=== PATIENT | female | born 1975 | race Caucasian/White ===

== ENCOUNTER → 2018-08-04 13:47 | Outpatient (CLI) | payer MEDICARE, SELFPAY | PROVIDERS: PCP Family Medicine; Visit Provider Family Medicine | DX: G47.30 Sleep apnea, unspecified (principal); R40.0 Somnolence | CPT/HCPCS: G0399 ==

== ENCOUNTER → 2018-10-24 19:40 | Outpatient (CLI) | payer MEDICARE, SELFPAY | PROVIDERS: PCP Family Medicine; Visit Provider Specialist | DX: G47.33 Obstructive sleep apnea (adult) (pediatric) (principal) | CPT/HCPCS: 95811 ==

== ENCOUNTER → 2019-01-15 12:55 | Outpatient (CLI) | payer MEDICARE, SELFPAY | PROVIDERS: PCP Family Medicine; Visit Provider Nurse Practitioner Family | DX: G47.33 Obstructive sleep apnea (adult) (pediatric) (principal) | CPT/HCPCS: 94762 ==

== ENCOUNTER → 2019-02-14 15:48 | Outpatient (CLI) | payer MEDICARE, SELFPAY ==
[2019-02-14 16:56] LABS: Basophils % 0.3 % (0.1-2.0); Eosinophils # 0.1 K/mm3 (0.0-0.4); Eosinophils % 1.1 % (0.1-12.0); Hematocrit 47.6 % (37.0-47.0); Hemoglobin 15.7 g/dL (12.2-16.2); Lymphocytes # 2.3 K/mm3 (0.7-4.5); Lymphocytes % 32.3 % (10-50); Mean Corpuscular HGB Conc 32.9 g/dL (31.8-35.4); Mean Corpuscular Volume 88.2 fl (81-99); Mean Platelet Volume 8.4 fl (7.4-10.4); Monocytes # 0.3 K/mm3 (0.1-1.0); Monocytes % 4.7 % (1.7-9.3); Neutrophils # 4.3 K/mm3 (1.8-7.8); Neutrophils % 61.4 % (37.0-80.0); Platelet Count 242 K/mm3 (142-424); Red Cell Distribution Width 14.2 % (11.5-17.5)
[2019-02-14 17:18] LABS: Alanine Aminotransferase 21 U/L (12-78); Albumin Level 3.8 gm/dL (3.4-5.0); Albumin/Globulin Ratio 1.2 (1.1-1.8); Alkaline Phosphatase 97 U/L (46-116); Anion Gap 13.3 mEq/L (5-15); Aspartate Amino Transferase 12 U/L (15-37); Bilirubin,Total 0.3 mg/dL (0.2-1.0); Blood Urea Nitrogen 16 mg/dL (7-18); Calcium 9.2 mg/dL (8.5-10.1); Carbon Dioxide 29 mmol/L (21.0-32.0); Chloride 98 mmol/L (98-107); Creatinine,Serum 0.96 mg/dL (0.55-1.02); Estimated Glomerular Filt Rate 63 ml/min (>60); GFR (African American) 76 ML/MIN (>60); Globulin 3.2 gm/dl (1.3-3.2); Glucose 218 mg/dL (74-106); Potassium 4.3 mmoL/L (3.5-5.1); Sodium 136 mmol/L (136-145); Thyroid Stimulating Hormone 1.16 uIU/ml (0.358-3.740)
[2019-02-16 10:10] LABS: Vitamin B12 609 pg/mL (232-1245); Vitamin D 25 Hydroxy 13.2 ng/mL (30.0-100.0)
== END ==
PROVIDERS: Visit Provider Nurse Practitioner Family
DX: E10.9 Type 1 diabetes mellitus without complications (principal); E55.9 Vitamin D deficiency, unspecified; G47.00 Insomnia, unspecified; G47.19 Other hypersomnia; G47.33 Obstructive sleep apnea (adult) (pediatric); R53.83 Other fatigue
CPT/HCPCS: 36415; 80053; 82607; 82652; 82746; 84443; 85025

== ENCOUNTER → 2020-04-07 09:57 | Outpatient (CLI) | payer MEDICARE, SELFPAY ==
[2020-04-07 11:44] LABS: Coronavirus 19 IgG Antibody Negative (Negative); Coronavirus 19 IgM Antibody Negative (Negative)
== END ==
PROVIDERS: Visit Provider Surgery
DX: Z01.818 Encounter for other preprocedural examination (principal); Z12.11 Encounter for screening for malignant neoplasm of colon
CPT/HCPCS: 36415; 86328

== ENCOUNTER 2020-04-08 06:20 | Day surgery (SDC) | payer MEDICARE, SELFPAY ==
[2020-04-04 13:09] VITALS: BMI 28.5
[2020-04-08 07:05] VITALS: BP 124/67; PULSE 79; RESP 20; TEMP 36.8; O2SAT 96
--- NOTE | 2020-04-08 07:12 | P.PN_ITS ---
[facility] Anesthesia Checklist - Patient Identification Patient Identification: Arm Band, Verbal (Name & ) - Structural Data Admitted From: Home Planned Operative Procedure/s: colon Consent for Planned Operative Procedure(s) Verified: Yes Verified Documents: History and Physical - NPO Status Verified Time NPO: 00:00 - Chart Verification Results Verified: CBC, BMP - Additional verifications Patient : No Anesthesia Reactions: No Hx Blood Transfusions: No Blood Transfusion Reaction: No Cephalosporin Allergy: No Previous Colonoscopy: No - Cardiovascular Assessment Heart Sounds: S1 & S2 Pulse Strength: Baseline Pulse Rhythm: Regular Peripheral Edema: No - Airway Assessment C-Spine Mobility Assessed: Yes TMJ Mobility Assessed: Yes Dentition: Edentulous - Neurological Assessment Level of Consciousness: Awake, Alert, Appropriate Hx Seizures: No Numbness or tingling in extremities: No - Anesthesia Plan Anesthesia Risk discussed: Yes Anesthesia Plan: Verified ASA Class: III Anesthesia Type: MAC [facility] History I have reviewed the patient's past medical history: Yes Medical History: Reports:: Anxiety, Depression, Diabetes Mellitus Type 1, Hyperlipidemia, Migraine Denies:: Cancer, Diabetes Mellitus Type 2, Internal Pacemaker, MRSA *Have you ever received a pneumonia vaccine?: No *Have you received a flu vaccine this season?: Yes Anesthesia experience/problems:: none Laterality Cases: Right: Arthroscopy Knee, Bilateral: Carpal Tunnel Release Other Surgeries: Yes: Colonoscopy, EGD, Hysterectomy-Partial, Tubal Ligation. No: Pacemaker Amputation: No Fractures: No - *Social History Last grade of school completed: Advanced degree Smoking Status: Current every day smoker Tobacco Type: cigarettes # Packs/Day (cigarettes): 1 Alcohol Intake: never Alcohol Intake Frequency:: other Substance Use Type: denies use *Occupational Status:: employed Housing: house Household Members: spouse *Travel in the last 8 weeks: None - Psychiatric History Pschychiatric History:: Reports:: Anxiety, Depression Family Hx:: Coronary Artery Disease, Hypertension, Stroke
[2020-04-08 07:19] LABS: POC Glucose,Bedside 292 (70-110)
[2020-04-08 07:26] VITALS: O2SAT 96
[2020-04-08 08:24] VITALS: BP 122/78; PULSE 82; RESP 20; TEMP 36.3; O2SAT 98
--- NOTE | 2020-04-08 08:24 | HMH.SCOPE ---
- Procedure: Date: 04/08/20 Patient Date of :: 1975 Procedure Performed:: Colonoscopy with polypectomy by biopsy and snare, colon biopsy Indications:: Patient presents for follow-up colonoscopy. I had performed EGD and colonoscopy on 12/21/2016. That was her initial colonoscopy. She had a couple of tubular adenomas in the cecum. Plan was for follow-up colonoscopy in 3 years. Of note, the patient underwent cervical spinal fusion on 02/12/2020. He is essentially asymptomatic regarding gastrointestinal symptoms. Performing Provider:: Vincenzo Whitfield MD Referring Provider:: None Sedation:: Propofol Procedure:: Patient was taken to endoscopy procedure room. She was positioned in a lateral cubitus position. Adequate intravenous sedation was achieved. Variable stiffness Olympus colonoscope was inserted via the anus. It was advanced to the cecum. Colonic preparation was fair but adequate visualization was achieved with thorough irrigation and suctioning. Ileocecal valve and appendiceal orifice were clearly identified. Colonoscope was slowly withdrawn through the colon with careful surveillance. In the ascending colon there was a pigmented lesion which was removed in its entirety with cold biopsy forceps. At the hepatic flexure there is a tiny diminutive hyperplastic appearing polyp removed with cold biopsy forceps. In the proximal transverse colon there was a tiny diminutive hyperplastic appearing polyp removed with cold biopsy forceps. In the distal transverse colon there was a similar pigmented lesion as previously noted which was mostly removed in a piecemeal fashion using cold biopsy forceps. In the distal sigmoid colon there was a tiny possible adenomatous appearing polyp removed with cold cutting snare. Retroflexion within the rectum revealed no evidence of any pathologic internal hemorrhoids. Colonoscope was withdrawn. Findings:: Polyps Focal pigmented lesions Recommendations:: Pending the pathology likely repeat colonoscopy 3 to 5 years Complications:: None immediately apparent Estimated blood obtained (mL): 3
[2020-04-08 08:34] VITALS: BP 117/63; PULSE 83; RESP 18; O2SAT 98
[2020-04-08 08:44] VITALS: BP 124/63; PULSE 83; RESP 18; O2SAT 98
[2020-04-08 08:54] VITALS: BP 129/70; PULSE 79; RESP 16; O2SAT 99
== END 2020-04-08 08:54 | disposition home or self-care (01) ==
LOC: OUTP 06:21
PROVIDERS: PCP Family Medicine; Visit Provider Surgery
PROC: 0DJD8ZZ Inspection of Lower Intestinal Tract, Via Natural or Artificial Opening Endoscopic (ICD-10-PCS; CPT 45380; principal; 2020-04-08 07:30)
DX: Z12.11 Encounter for screening for malignant neoplasm of colon (principal); Z87.19 Personal history of other diseases of the digestive system; Z87.39 Personal history of other diseases of the musculoskeletal system and connective tissue; K63.89 Other specified diseases of intestine; K63.5 Polyp of colon; E10.9 Type 1 diabetes mellitus without complications; E78.5 Hyperlipidemia, unspecified; F41.9 Anxiety disorder, unspecified; F32.9 Major depressive disorder, single episode, unspecified; G43.909 Migraine, unspecified, not intractable, without status migrainosus; Z72.0 Tobacco use; Z82.3 Family history of stroke
CPT/HCPCS: 45380; 45385; 82962; 88305

== ENCOUNTER → 2021-01-24 09:46 | Outpatient (CLI) | payer MEDICARE, SELFPAY ==
[2021-01-24 09:59] LABS: Basophils # 0.1 K/mm3 (0-0.2); Basophils % 0.5 % (0.1-2.0); Eosinophils # 0.2 K/mm3 (0.0-0.4); Eosinophils % 1.7 % (0.1-12.0); Hematocrit 45.9 % (37.0-47.0); Hemoglobin 15.1 g/dL (12.2-16.2); Lymphocytes # 2.2 K/mm3 (0.7-4.5); Lymphocytes % 24.7 % (10-50); Mean Corpuscular Hemoglobin 28.6 pg (27.0-31.2); Mean Corpuscular Volume 86.9 fl (81-99); Mean Platelet Volume 8.4 fl (7.4-10.4); Monocytes # 0.3 K/mm3 (0.1-1.0); Monocytes % 3.6 % (1.7-9.3); Neutrophils # 6.1 K/mm3 (1.8-7.8); Neutrophils % 69.5 % (37.0-80.0); Platelet Count 207 K/mm3 (142-424); Red Blood Count 5.28 M/mm3 (4.20-5.40); Red Cell Distribution Width 14.6 % (11.5-17.5); White Blood Count 8.8 K/mm3 (4.8-10.8)
[2021-01-24 11:58] LABS: Chloride 102 mmol/L (98-107); Potassium 5.2 mmoL/L (3.5-5.1); Sodium 137 mmol/L (136-145)
[2021-01-24 12:00] LABS: Alanine Aminotransferase 11 U/L (12-78); Anion Gap 12.2 mEq/L (5-15); Aspartate Amino Transferase 20 U/L (14-36); Blood Urea Nitrogen 12 mg/dl (7-17); Carbon Dioxide 28 mmol/L (22.0-30.0); Estimated Glomerular Filt Rate 77 ml/min (>60); GFR (African American) 93 ML/MIN (>60)
[2021-01-24 12:01] LABS: Albumin Level 3.6 g/dl (3.5-5.0); Albumin/Globulin Ratio 1.5 (1.1-1.8); Alkaline Phosphatase 88 U/L (38-126); Amylase < 30 U/L (30-110); Bilirubin,Total 0.2 mg/dl (0.2-1.3); Calcium 8.9 mg/dl (8.4-10.2); Globulin 2.4 g/dL (1.3-3.2); Glucose 314 mg/dl (74-100); Lipase 74 U/L (23-300)
== END ==
PROVIDERS: Visit Provider Surgery
DX: K82.9 Disease of gallbladder, unspecified (principal); Z01.812 Encounter for preprocedural laboratory examination; Z11.52 Encounter for screening for COVID-19
CPT/HCPCS: 36415; 80053; 82150; 83690; 85025; U0003

== ENCOUNTER 2021-01-27 08:50 | Day surgery (SDC) | payer MEDICARE, SELFPAY ==
[2021-01-21 14:19] VITALS: BMI 28.3
[2021-01-27] VITALS (11 sets, daily range): BP systolic 109–140; BP diastolic 49–69; PULSE 66–77; RESP 12–18; TEMP 36.2–43; O2SAT 93–99
--- NOTE | 2021-01-27 09:36 | P.PN_ITS ---
[facility] Anesthesia Checklist - Patient Identification Patient Identification: Arm Band, Verbal (Name & ) - Structural Data Admitted From: Home Planned Operative Procedure/s: lap, choly Consent for Planned Operative Procedure(s) Verified: Yes Verified Documents: History and Physical - NPO Status Verified Time NPO: 00:00 - Chart Verification Results Verified: CBC, BMP - Additional verifications Patient : No Anesthesia Reactions: No (nausea) Hx Blood Transfusions: No Blood Transfusion Reaction: No Cephalosporin Allergy: No Previous Colonoscopy: Yes - Cardiovascular Assessment Heart Sounds: S1 & S2 Pulse Strength: Baseline Pulse Rhythm: Regular Peripheral Edema: No - Airway Assessment C-Spine Mobility Assessed: Yes TMJ Mobility Assessed: Yes Dentition: Edentulous - Neurological Assessment Level of Consciousness: Awake, Alert, Appropriate Hx Seizures: No Numbness or tingling in extremities: No - Anesthesia Plan Anesthesia Risk discussed: Yes Anesthesia Plan: Verified ASA Class: III Anesthesia Type: General [facility] History I have reviewed the patient's past medical history: Yes Medical History: Reports:: Anxiety, Depression, Diabetes Mellitus Type 1, Hyperlipidemia, Hypertension, Migraine Denies:: Cancer, Diabetes Mellitus Type 2, Internal Pacemaker, MRSA, Seizures *Have you ever received a pneumonia vaccine?: No *Have you received a flu vaccine this season?: Yes Other Medical History: Denies: Blood Transfusion Reaction Anesthesia experience/problems:: none Laterality Cases: Right: Arthroscopy Knee, Bilateral: Carpal Tunnel Release Other Surgeries: Yes: Colonoscopy, EGD, Hysterectomy-Partial, Tubal Ligation. No: Pacemaker Amputation: No Fractures: No - *Social History Last grade of school completed: Some college Smoking Status: Current every day smoker Tobacco Type: cigarettes # Packs/Day (cigarettes): 1 Alcohol Intake: never Alcohol Intake Frequency:: other Substance Use Type: denies use *Occupational Status:: employed Housing: house Household Members: spouse, none *Travel in the last 8 weeks: None - Psychiatric History Pschychiatric History:: Reports:: Anxiety, Depression Family Hx:: Cancer
--- NOTE | 2021-01-27 11:03 | HMH.OPNOTE ---
Date of procedure: 01/27/21 Pre-op Diagnosis:: Gallbladder disease Post-op Diagnosis:: Same Procedure performed:: Laparoscopic cholecystectomy Surgeon:: Vincenzo Whitfield MD GARNETT MECHANIC:: William Anderson Anesthesia: GETA Estimated blood loss (mL): 15 Clinical Note:: Patient is a 45-year-old female from [facility] referred for gallbladder. Her primary care provider is Velma Aguilar. I had previously seen her for colonoscopy. She states that for several months she has had epigastric pain described as burning. It radiates to bilateral upper quadrants and she has right upper quadrant cramping. She has associated nausea as well as belching and burping with increased gassiness. She does have some exacerbation of some of the symptoms occurring postprandially. She had apparently undergone CT scan at outside facility which was unremarkable other than some retained stool according to her. She had seen directional bore operator, Dr. Rudy Williamson. He had ultimately performed upper endoscopy and she had mild erythema of the stomach. He ordered gallbladder ultrasound which was performed at [facility] which reveals a 4 mm and 3 mm focus in the gallbladder consistent with polyp . She was found to have some mild erythema of the stomach. Patient has been on pantoprazole for several years. She was recently started on Carafate. This has not helped her symptoms. Patient is an insulin-dependent diabetic with continuous glucose monitor and insulin pump. I had a long discussion with the patient. Given her symptomatology and work-up it is highly likely that her symptoms are secondary to her gallbladder. Regardless, she does have a couple of small to moderate gallbladder polyps. HIDA scan may confuse the issue. I counseled her on possible gallbladder surgery. She would like to pursue this. If her symptoms persist possible gastric emptying scan may be considered although her symptoms do not sound to be consistent with gastroparesis. Operative findings:: She had a distended gallbladder with omental adhesions adherent to the gallbladder. Operative note:: Patient was taken to the operating room. She was given preoperative intravenous antibiotics. In the operating room she was placed in a supine position. General anesthesia was induced via endotracheal tube. Abdomen was prepped and draped in the standard surgical fashion. Subumbilical skin incision was made and her previous laparoscopy scar. While performing abdominal wall lift Veress needle was inserted. CO2 pneumoperitoneum was achieved to 15 mmHg. 11 mm optical trocar was inserted at the umbilicus. Intraperitoneal contents were visualized. She was positioned in reverse Trendelenburg left side down. A couple 5 mm trochars were inserted in the right upper abdomen. 10 mm trocar was inserted in the epigastrium. Gallbladder was identified and grasped and retracted anteriorly and superiorly over the dome of the liver. There were omental adhesions to the gallbladder which were taken down using blunt dissection. The visceral peritoneum overlying the neck of the gallbladder was incised. Cystic duct and cystic artery were dissected free. Cystic duct was isolated, multiply clipped, and sharply divided. Cystic artery was carefully coagulated with DuX[employer]ore ultrasonic robotic james and divided. Gallbladder was dissected free from the liver in a retrograde fashion using DuX[employer]ore ultrasonic harmonic james. Gallbladder was placed within an Endo Catch retrieval device and removed from the peritoneal cavity via the umbilical trocar site. Gallbladder fossa was inspected for hemostasis which was assured. Minimal residual fluid was suctioned free. Trochars were removed as CO2 pneumoperitoneum was evacuated. Fascia at the umbilicus was closed with a couple of 0 Vicryl sutures. Local anesthetic was infiltrated. Skin incisions were closed with 4-0 Monocryl subcuticular fashion. Steri-Strips and dressings were applied. Condition: stab
--- NOTE | 2021-01-27 11:12 | P.PN_ITS ---
[facility] Anesthesia Record Part I Intake, IV Amount: 900 Estimated blood loss (mL): 20 Urine output (mL): 0 Blood Pressure: 115/66 SaO2: 96 Pulse Rate: 70 Respiratory Rate: 12 Temperature: 99.3 F Patient is:: Drowsy, Oral/Nasal airway Stable to PACU at:: 11:10
[2021-01-27 11:20] LABS: POC Glucose,Bedside 184 (70-110)
--- NOTE | 2021-01-28 07:14 | P.PN_ITS ---
[facility] Anesthesia Record Part II Discharge Time: 11:50 Destination: Surgical Day Care (OP Surgery) PACU nurse assessment reviewed?: Yes Patient Condition:: Good Anesthesia Complications:: None Swallowing reflex intact?: Yes Cyanosis?: No Blood Pressure: 124/58 Pulse Rate: 71 Temperature: 99.3 F Mental Status: Alert & Oriented Pain level:: 0 Nausea and/or vomitting:: None Intake, IV Amount: 0
[2021-01-28 07:15] VITALS: BP 124/58; PULSE 71; TEMP 37.4
== END 2021-01-27 12:30 | disposition home or self-care (01) ==
LOC: OR 08:52
PROVIDERS: PCP Family Medicine; Visit Provider Surgery
PROC: 0FT44ZZ Resection of Gallbladder, Percutaneous Endoscopic Approach (ICD-10-PCS; CPT 47562; principal; 2021-01-27 10:45)
DX: K66.0 Peritoneal adhesions (postprocedural) (postinfection) (principal); K81.1 Chronic cholecystitis; E10.9 Type 1 diabetes mellitus without complications; E78.5 Hyperlipidemia, unspecified; I10 Essential (primary) hypertension; G43.909 Migraine, unspecified, not intractable, without status migrainosus; F41.9 Anxiety disorder, unspecified; F32.9 Major depressive disorder, single episode, unspecified; Z72.0 Tobacco use; Z80.9 Family history of malignant neoplasm, unspecified; Z88.6 Allergy status to analgesic agent; Z79.899 Other long term (current) drug therapy
CPT/HCPCS: 47562; 82962; 88304; 96374; J0131; J2405

== ENCOUNTER 2024-07-26 10:45 | Outpatient (POV) | payer MEDICARE, SELFPAY ==
--- NOTE | 2024-07-26 10:50 | A.OFFVIS_ITS ---
HPI Data of Consult Patient: new to practice Consult date: 07/26/24 Requesting Physician: Donna Leggett APRN Primary Care Provider: Cuong Florez Consult Narrative Reason for consult: Low back pain, left hip pain History of present illness: Ms. Carl is a 49 year old female who presents today as a new patient. She is a referral from [facility]. Today she rates her pain a 4 out of 10. Patient states that she has been having chronic pain along her low back and left side that has been going on for over a year.She describes it as if bones are rubbing together when she is walking or almost is like a bruise sensation and that a knot is into her muscles. She denies any specific injury or trauma that initially started this pain. She does state that she had a fall about 2 to 3 years ago that may have aggravated her symptoms however at that time she did not have any pain, up. 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 Patient did have a SI injection that was diagnostic and only had lidocaine. Patient states that her insurance would not cover any more than that and so it did provide significant improvement when it was not and did relay to [facility] 24 hours of relief. She states that she cannot tolerate steroid injections because they do cause significant depression. She states that she has had multiple injections in the past and every time it seemed to cause this effect. Patient denies any prior surgery history or physical therapy. She is seeing a chiropractor today. She is interested in any help we may be able to provide.Patient is prescribed butal and clonazepam from outside providers. Her Vaughn has been reviewed and is appropriate. CC: Donna Leggett APRN [facility] Disclaimer: The information contained in this section may have been updated after the patient was seen, as this information can be updated by other users. Medical History (Updated 07/26/24 @ 11:22 by Donna Leggett APRN) FH: total abdominal hysterectomy and bilateral salpingo-oophorectomy Carpal tunnel syndrome Arthritis Diabetes GERD (gastroesophageal reflux disease) COPD (chronic obstructive pulmonary disease) HLD (hyperlipidemia) Anxiety Depression Surgical History (Updated 07/26/24 @ 11:10 by Trinh Louis RN) H/O lateral meniscus repair of right knee Family History (Updated 07/26/24 @ 11:09 by Trinh Louis RN) Other Unknown family medical history Social History Smoking Status: Current every day smoker tobacco type: cigarettes packs per day: 1 alcohol intake: never substance use type: denies use current occupational status: unemployed Travel in the last 8 weeks: None household members: spouse and none housing: house current occupation: [employer] Le[employer] caffeine: Yes Review of Systems Review of Systems Review of systems:: pertinent systems reviewed and negative unless documented below Review of systems (narrative): Review of Systems: General: No recent weight changes, no fever, no sleep disturbances Respiratory: No cough, no shortness of air, no recurring pulmonary infections Cardiovascular/peripheral vascular: No chest pain, no palpitations, no edema, no shortness of breath Gastrointestinal: No new onset incontinence, normal bowel movements reported Genitourinary: No new onset incontinence Musculoskeletal: Left buttocks pain, left hip pain Psychiatric: [Normal mood/affect] Neurological: [Denies weakness in extremities], [denies balance issues] Meds Home Medications and Allergies Home Medications ?Medication ?Instructions ?Recorded ?Confirmed ?Type albuterol sulfate 90 mcg/actuation 2 puff inhalation NEEDED PRN 09/29/18 02/20/21 History aerosol inhaler (Ventolin HFA) copd citalopram 40 mg tablet 40 mg PO DAILY Depression #90 tabs 09/29/18 02/20/21 History insulin aspart U-100 100 unit/mL 80 unit continuous subcutaneous 09/29/18 02/20/21 History subcutaneous solution infusion DAILY Diabetes #90 mL pantoprazole 40 mg tablet,delayed 40 mg PO BID GERD #180 tabs 09/29/18 02/20/21 History release atorvastatin 80 mg tablet 80 mg PO DAILY Cholesterol #90 tabs 11/20/18 02/20/21 History ubrogepant 100 mg tablet (Ubrelvy) 100 mg PO DAILY migraines 01/19/21 02/20/21 History carvedilol 3.125 mg tablet 3.125 mg PO BID tachycardia 01/21/21 02/20/21 History galcanezumab-gnlm 120 mg/mL 120 mg SQ MONTHLY migraines 01/21/21 02/20/21 History subcutaneous pen injector oxazepam 15 mg capsule 15 mg PO BID PRN Anxiety 01/21/21 02/20/21 History hydrocodone 5 mg-acetaminophen 325 1 - 2 tab PO Q6HP PRN Moderate 01/27/21 02/20/21 Rx mg tablet Pain #17 tabs levocetirizine 5 mg tablet 5 mg PO DAILY 02/20/21 02/20/21 History New Prescriptions to Start Prescriptions: Allergies Allergy/AdvReac Type Severity Reaction Status Date / Time naproxen Allergy Intermediate I-HIVES Verified 02/20/21 09:10 ibuprofen Allergy Mild NA-NAUSEA Verified 02/20/21 09:10 Objective Narrative: Physical Exam: General: Alert and oriented x3, no acute distress, pleasant and cooperative Lungs: Respirations even and unlabored, symmetrical chest expansion Eyes: PERRL Musculoskeletal: Flexion and extension of lumbar [spine] somewhat guarded secondary to pain, point tenderness along left bursa and left buttocks approximate left piriformis muscle Neurological: Speech clear, no gross sensory deficit Additional findings Additional findings: MRI lumbar spine 02/22/2024 Findings: L1-L2, L2-L3 no neural compression L3-L4 nominal facet hypertrophy with mild facet capsulitis no neural compression L4-L5 mild facet hypertrophy and capsulitis no neural compression L5-S1 2 mm central to left recess shallow disc protrusion. Minor bilateral foraminal stenosis MRI left hip 01/25/2024 Findings: No sizable labral tear identified. Femoral head is smooth without evidence of osteochondral defect. Femoral acetabular joints are well- maintained. Visualized osseous structures demonstrate normal marrow signal characteristics. Visualized portion of the SI joints are unremarkable. Images of the pelvis showed no evidence of free pelvic fluid no evidence of pelvic mass Assessment and Plan *Assessment and plan (1) Left buttock pain: Status: Acute Category: Medical Code(s): M79.18 - Myalgia, other site (2) Left hip pain: Status: Acute Category: Medical Code(s): M25.552 - Pain in left hip (3) Low back pain: Status: Acute Category: Medical Code(s): M54.50 - Low back pain, unspecified Plan Patient did have point tenderness along her left bursa and around her left piriformis muscle during today's exam. I did discuss with her that we are primarily in injection therapy clinic and that our injections do consist of steroids. Patient was counseled that we can always do the injections without steroids however typically it does not provide long-lasting relief and then therefore would be at her discretion of whether or not it would be worth her time to have the injection done. I will order the patient a compounded cream. Patient denied any radiating symptoms into her legs. I did also discuss with the patient since she has had muscle relaxers in the past including Flexeril and methocarbamol that did seem like they were too sedating that we will trial low- dose baclofen 5 mg at bedtime with a 14-day supply. Patient was counseled that this will be a tablet and that if it is still too sedating that she can break it in half. Patient will return to clinic in 2 weeks for reevaluation of symptoms and plan of care. Patient has been instructed to contact the clinic with any concerns before the next appointment. Dr. Mead has reviewed this note and agrees with this plan of care. This note was dictated using voice recognition software and make contain errors or omissions. All injections are used with Lidocaine, Bupivacaine and Depo Medrol. Occasionally urine drug screen is needed to verify patient's compliance with our office pain contract. This is ordered based off specific treatments related to chronic pain with the potential to abuse certain medications.
[2024-07-26 10:51] VITALS: BP 130/69; PULSE 85; RESP 18; O2SAT 97; BMI 25.4
== END 2024-07-26 23:59 | disposition home or self-care (01) ==
PROVIDERS: PCP Family Medicine; Visit Provider Nurse Practitioner Family
DX: M79.18 Myalgia, other site (principal); M25.552 Pain in left hip; M54.50 Low back pain, unspecified; F17.210 Nicotine dependence, cigarettes, uncomplicated
CPT/HCPCS: 99202; G0463